=== PATIENT | male | born 1965 | race African-American/Black ===

== ENCOUNTER 2016-06-25 10:02 | Emergency (ER) | payer MEDICAID ==
[~2016-06-25 10:02] MED LIST: B-12500 MC1 PO; BISACODYL5 M1 PO; CARTIA XT180 M1 PO; COLACE100 M1 PO; FLONASE ALLERG9.9 ML; LIPITOR80 M1 PO; LO-DOSE ASPIRIN81 M2 PO; NORCO 10-325 T1 EACH PO; OMEPRAZOLE20 M3 PO; PREDNISONE5 M1 PO; PROGRAF1 M1 PO; REGLAN10 M2 PO; SULFAMETHOXAZO PO; VALGANCICLOVIR450 MG PO; VITAMIN D35000 UNI3 PO; ZYLOPRIM100 M1 PO
[2016-06-25] MEDS ORDERED: CEROVITE ADVAN1 EACH PO (10:27)
[2016-06-25] MEDS ORDERED: HYDRALAZINE HCL50 M1 PO (10:27)
[2016-06-25] MEDS ORDERED: MIRTAZAPINE30 M2 PO (10:28)
[2016-06-25] MEDS ORDERED: SODIUM BICARBO650 M1 PO (10:29)
[2016-06-25] MEDS ORDERED: NIFEDIPINE ER60 M2 PO (10:30)
[2016-06-25] MEDS ORDERED: COREG12.5 M1 PO (10:30)
[2016-06-25] MEDS ORDERED: LASIX40 M1 PO (10:31)
[2016-06-25] MEDS ORDERED: DOK100 M2 PO (10:33)
[2016-06-25 10:46] LABS: BASO % 0.6 % (0-2); EOS % 0.6 % (0-7); HCT-HEMATOCRIT 32.3 % (36.0-53.5); IMMATURE GRANULOCYTES ABSOLUTE 0.08 tho/cmm (0-0.03); IMMATURE GRANULOCYTES PERCENT 4.5 % (0-0.3); LYMPH ABSOLUTE COUNT 0.4 tho/cmm (0.8-4.5); MCH (MEAN CORPUSCULAR HGB) 29.6 pg (28.0-32.0); MCV (MEAN CELL VOLUME) 95.6 fl (82.0-96.0); MONO % 1.1 % (0-12); NEUTROPHIL ABSOLUTE COUNT 1.3 tho/cmm (1.6-8.0); NEUTROPHIL-AUTOMATED 1.3 tho/cmm (1.6-8.0); NEUTROPHILS % 70.2 % (40-80); PLATELET COUNT 126 tho/cmm (150-450); RED BLOOD COUNT 3.38 mil/cmm (4.40-5.70); RED CELL DISTRIBUTION WIDTH 14.9 % (12.4-16.4)
[2016-06-25 10:53] LABS: INR 1.1 INR (0.9-1.1); PROTHROMBIN TIME 12.6 SECONDS (9.0-13.6)
[2016-06-25 10:58] LABS: WHITE BLOOD COUNT 1.8 tho/cmm (4.0-10.0)
[2016-06-25 11:02] LABS: URINE BILIRUBIN NEGATIVE (NEG); URINE BLOOD NEGATIVE (NEG); URINE GLUCOSE (UA) NEGATIVE (NEG); URINE KETONE NEGATIVE (NEG); URINE LEUKOCYTE ESTERASE NEGATIVE (NEG); URINE NITRITE NEGATIVE (NEG); URINE PROTEIN MODERATE (NEG); URINE SPECIFIC GRAVITY 1.015 (1.003-1.030)
[2016-06-25 11:03] LABS: ALB/GLOB RATIO 1.1 (0.8-2.0); ALBUMIN 3.3 g/dl (3.5-5.0); ALKALINE PHOSPHATASE 63 U/L (33-138); ALT/SGPT 24 U/L (12-78); ANION GAP 14 mmol/L (0-20); AST/SGOT 22 U/L (10-40); BILIRUBIN,TOTAL 0.4 mg/dl (0.0-1.5); BLOOD UREA NITROGEN 56 mg/dl (6-24); CALCIUM 8.4 mg/dl (8.5-10.5); CARBON DIOXIDE-VENOUS 20 mmol/L (22-32); CHLORIDE 109 mmol/l (96-110); CREATININE 4.07 mg/dl (0.60-1.30); GLUCOSE 118 mg/dL (70-110); POTASSIUM 4.6 mmol/L (3.7-5.1); SODIUM 138 mmol/L (135-145); eGFR VALUE FOR BLACK 19 mL/Min
[2016-06-25 11:05] LABS: URINE APPEARANCE CLEAR; URINE COLOR YELLOW
[2016-06-25 11:32] LABS: URINE RBC 0-1 /[HPF] (0-5)
[2016-06-25 11:33] LABS: URINE AMORPHOUS 1+
[2016-06-25] MEDS ORDERED: MYCOPHENOLIC A180 MG PO (11:37)
[2016-06-25 12:31] LABS: PROCALCITONIN 12.31 ng/ml (0.05-0.09)
== END 2016-06-25 13:03 | disposition other institution (70) ==
LOC: EDMED 10:02
PROVIDERS: Emergency Medicine
DX: A41.9 Sepsis, unspecified organism (principal); R65.21 Severe sepsis with septic shock; D72.819 Decreased white blood cell count, unspecified; I10 Essential (primary) hypertension; Z79.82 Long term (current) use of aspirin; Z79.899 Other long term (current) drug therapy
CPT/HCPCS: J2543; J3370; J7030